=== PATIENT | female | born 2000 | race Caucasian/White ===

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

== ENCOUNTER 2021-07-27 13:47 | Emergency (ER) | payer OTHER ==
[~2021-07-27] VITALS: Ht 180.3 cm; Wt 123.0 kg
[2021-07-27 13:52] VITALS: BP 138/89
[2021-07-27] MEDS ORDERED: KETOROLAC 60MG/2ML VIAL IM STA (14:14)
[2021-07-27] MEDS ORDERED: IBUP-2029 PO (15:58)
== END 2021-07-27 16:44 | disposition home or self-care (01) ==
LOC: ER 13:47
DX: S83.004A Unspecified dislocation of right patella, initial encounter (principal); T14.90XA Injury, unspecified, initial encounter; X58.XXXA Exposure to other specified factors, initial encounter; Y93.89 Activity, other specified; Y92.89 Other specified places as the place of occurrence of the external cause; Y99.8 Other external cause status
CPT/HCPCS: 73562; 99283